=== PATIENT | male | born 1945 | race Caucasian/White ===

== ENCOUNTER 2017-03-13 04:43 | Emergency (ER) | payer MEDICARE, MEDICAID ==
[~2017-03-13] VITALS: Ht 162.6 cm; Wt 66.6 kg
[2017-03-13 11:44] VITALS: BP 128/102
== END 2017-03-13 11:48 | disposition home or self-care (01) ==
LOC: ED 06:39 → EDIP 08:01 → UNDOADMOB 08:01 → ED 11:48
DX: F10.129 Alcohol abuse with intoxication, unspecified (principal); F19.10 Other psychoactive substance abuse, uncomplicated; I10 Essential (primary) hypertension
CPT/HCPCS: 99283

== ENCOUNTER 2018-04-01 06:30 | Observation (INO) | payer MEDICARE, MEDICAID ==
[~2018-04-01] VITALS: Ht 165.1 cm; Wt 59.6 kg
[2018-04-01] MEDS ORDERED: LISI-167 PO (07:15)
[2018-04-01] MEDS ORDERED: TRAZ-137 PO (07:15)
[2018-04-01] MEDS ORDERED: TAMS0.4C2 PO (07:15)
[2018-04-01] MEDS ORDERED: IBUP-1222 PO (07:18)
[2018-04-01] MEDS ORDERED: SERT50TA5 PO (07:18)
[2018-04-01 07:26] LABS: BASOPHILS # (AUTO) 0.01 x10^3/uL (0-0.1); BASOPHILS % (AUTO) 0 % (0-1); EOSINOPHILS # (AUTO) 0.11 x10^3/uL (0-0.4); EOSINOPHILS % (AUTO) 2 % (1-7); LYMPHOCYTES # (AUTO) 0.65 x10^3/uL (1-3.4); LYMPHOCYTES % (AUTO) 11 % (22-44); MD NO; MEAN CORPUSCULAR HEMOGLOBIN 30.7 pg (27.5-34.5); MEAN CORPUSCULAR HGB CONC 33.5 g/dL (33.2-36.2); MEAN CORPUSCULAR VOLUME 91.5 fL (81-97); MEAN PLATELET VOLUME 7.3 fL (7.4-10.4); MONOCYTES # (AUTO) 0.48 x10^3/uL (0.2-0.8); MONOCYTES % (AUTO) 8 % (2-9); NEUTROPHILS # (AUTO) 4.84 x10^3/uL (1.8-6.8); NEUTROPHILS % (AUTO) 79 % (42-75); PLATELET COUNT 231 x10^3/uL (130-400); RED BLOOD COUNT 4.18 x10^6/uL (4.38-5.82); RED CELL DISTRIBUTION WIDTH 12.5 % (9.4-14.8)
[2018-04-01] MEDS ORDERED: SODIUM CHLORIDE FLUSH 10ML SYR IVF ONE (07:30)
[2018-04-01 07:33] LABS: INTERNATIONAL NORMALIZED RATIO 1.07 (0.93-1.1)
[2018-04-01 07:35] LABS: ALANINE AMINOTRANSFERASE 15 U/L (12-78); ALBUMIN 3.8 g/dL (3.4-5.0); ANION GAP 11 mmol/L (5-15); CALCIUM 8.5 mg/dL (8.5-10.1); CHLORIDE 102 mmol/L (98-107); CREATININE 1.15 mg/dL (0.7-1.3)
[2018-04-01 07:39] LABS: ALKALINE PHOSPHATASE 82 U/L (45-117); BILIRUBIN,TOTAL 0.7 mg/dL (0.2-1.0); TOTAL PROTEIN 6.9 g/dL (6.4-8.2); TROPONIN I < 0.015 ng/mL (0.000-0.045)
[2018-04-01] MEDS: D5%-0.45NACL+KCL 20MEQ 1,000 ML IV SCH ×3 (08:48→23:42)
[2018-04-01] MEDS ORDERED: THIAMINE 100MG TABLET ONE (08:54)
[2018-04-01] MEDS ORDERED: KETOROLAC 30 MG/1 ML IV PRN (09:00)
[2018-04-01] MEDS ORDERED: THIAMINE 100MG TABLET PO ONE (09:00)
[2018-04-01] MEDS ORDERED: IBUPROFEN 600 MG TABLET PO PRN (09:00)
[2018-04-01] MEDS ORDERED: ACETAMINOPHEN 325 MG TABLET PO PRN (09:00)
[2018-04-01] MEDS ORDERED: hydrALAzine 20 MG/ML, 1ML IVPush PRN (09:00)
[2018-04-01] MEDS ORDERED: TAMSULOSIN 0.4 MG CAP.ER.24H ONE (09:16)
[2018-04-01] MEDS: TAMSULOSIN 0.4 MG CAP.ER.24H PO SCH (09:19)
[2018-04-01 10:31] VITALS: BP 121/65
[2018-04-01] MEDS: ENOXAPARIN 40 MG/0.4 ML SQ SCH (10:58)
[2018-04-01] MEDS: SERTRALINE 50MG TABLET PO SCH (13:19)
[2018-04-01 13:35] VITALS: BP 139/72
[2018-04-01 13:48] LABS: TROPONIN I < 0.015 ng/mL (0.000-0.045)
[2018-04-01 19:11] VITALS: BP 134/62
[2018-04-01 19:12] VITALS: BP_SYST 124; BP_SYST 130; BP_DIAS 55; BP_DIAS 67
[2018-04-01 19:45] LABS: TROPONIN I 0.017 ng/mL (0.000-0.045)
[2018-04-01] MEDS ORDERED: TRAZODONE 50MG TABLET PO SCH (21:00)
[2018-04-02] VITALS (7 sets, daily range): BP systolic 135–176; BP diastolic 66–89
[2018-04-02 05:48] LABS: BASOPHILS # (AUTO) 0.01 x10^3/uL (0-0.1); BASOPHILS % (AUTO) 0 % (0-1); EOSINOPHILS # (AUTO) 0.09 x10^3/uL (0-0.4); EOSINOPHILS % (AUTO) 2 % (1-7); LYMPHOCYTES # (AUTO) 0.29 x10^3/uL (1-3.4); LYMPHOCYTES % (AUTO) 5 % (22-44); MD NO; MEAN CORPUSCULAR HEMOGLOBIN 31.5 pg (27.5-34.5); MEAN CORPUSCULAR HGB CONC 34.1 g/dL (33.2-36.2); MEAN CORPUSCULAR VOLUME 92.5 fL (81-97); MEAN PLATELET VOLUME 7.8 fL (7.4-10.4); MONOCYTES % (AUTO) 2 % (2-9); NEUTROPHILS # (AUTO) 5.61 x10^3/uL (1.8-6.8); NEUTROPHILS % (AUTO) 92 % (42-75); PLATELET COUNT 189 x10^3/uL (130-400); RED BLOOD COUNT 4.04 x10^6/uL (4.38-5.82); RED CELL DISTRIBUTION WIDTH 12.6 % (9.4-14.8)
[2018-04-02 05:59] LABS: ANION GAP 8 mmol/L (5-15); CHLORIDE 109 mmol/L (98-107); CREATININE 1.08 mg/dL (0.7-1.3)
[2018-04-02 06:09] LABS: TROPONIN I < 0.015 ng/mL (0.000-0.045)
[2018-04-02] MEDS: SERTRALINE 50MG TABLET PO SCH (10:00)
[2018-04-02] MEDS: TAMSULOSIN 0.4 MG CAP.ER.24H PO SCH (10:01)
[2018-04-02] MEDS: ENOXAPARIN 40 MG/0.4 ML SQ SCH (10:01)
[2018-04-02] MEDS: D5%-0.45NACL+KCL 20MEQ 1,000 ML IV SCH (10:39)
== END 2018-04-02 18:30 | disposition home or self-care (01) ==
LOC: ED 08:53 → EDIP 08:54 → 5SO 10:07
PROVIDERS: ADMIT Hospitalist; ATTEND Family Medicine
DX: R55 Syncope and collapse (principal); D64.9 Anemia, unspecified; E86.0 Dehydration; E87.1 Hypo-osmolality and hyponatremia; F10.10 Alcohol abuse, uncomplicated; F17.200 Nicotine dependence, unspecified, uncomplicated; F32.9 Major depressive disorder, single episode, unspecified; G89.29 Other chronic pain; G90.9 Disorder of the autonomic nervous system, unspecified; I10 Essential (primary) hypertension; J98.11 Atelectasis; N40.0 Benign prostatic hyperplasia without lower urinary tract symptoms; Z59.0 Homelessness; Z81.8 Family history of other mental and behavioral disorders; Z85.46 Personal history of malignant neoplasm of prostate; Z86.74 Personal history of sudden cardiac arrest
CPT/HCPCS: 36415; 70450; 71045; 80048; 80053; 83880; 84484; 85025; 85610; 85730; 93005; 93306; 96360; 96361; 96372; 99285; G0378; J1650; J3480

== ENCOUNTER 2018-06-30 01:04 | Emergency (ER) | payer MEDICARE, MEDICAID ==
[~2018-06-30] VITALS: Ht 165.1 cm; Wt 63.5 kg
[~2018-06-30 01:04] MED LIST: IBUP-1222 PO; LISI-167 PO; SERT50TA28 PO; TAMS0.4C2 PO; TRAZ-137 PO
--- NOTE | 2018-06-30 01:27 | NUR ---
PT REPORTS L SIDED DENTAL PAIN X ONE WEEK, WORSENING TODAY. AIRWAY PATENT; SPEECH CLEAR; PT MANAGING OWN SECRETIONS. PT HYPERTENSIVE W HX OF SAME. NON-COMPLIANT WITH MEDICATIONS. DENIES CP/SOB/DODGE/NOSEBLEEDS/FLANK PAIN
[2018-06-30] MEDS ORDERED: HYDROcodone/APAP 5/325 TABLET ONE (01:44)
[2018-06-30] MEDS ORDERED: HYDROcodone/APAP 5/325 TABLET PO ONE (02:00)
[2018-06-30 02:05] VITALS: BP 175/80
--- NOTE | 2018-06-30 02:16 | NUR ---
PT REPORTS IMPROVEMENT IN PAIN W/ MEDICATIONS. IMPROVMENT IN BP NOTED. SPO2 REMAINS >90% ON RA. DC EDUCATION PROVIDED, PT DEMONSTRATES UNDERSTANDING. PT TO WALK HOME REPORTS "I DON'T LIVE FAR". PT DRESSED APPROPRIATELY FOR WEATHER
== END 2018-06-30 02:19 | disposition home or self-care (01) ==
LOC: ED 01:32
DX: K08.89 Other specified disorders of teeth and supporting structures (principal); I10 Essential (primary) hypertension; F17.200 Nicotine dependence, unspecified, uncomplicated; Z85.46 Personal history of malignant neoplasm of prostate
CPT/HCPCS: 99283; J7512

== ENCOUNTER 2018-07-01 09:39 | Emergency (ER) | payer MEDICARE, MEDICAID ==
[~2018-07-01] VITALS: Ht 165.1 cm; Wt 62.0 kg
[2018-07-01 09:50] VITALS: BP 189/83
--- NOTE | 2018-07-01 10:17 | NUR ---
Pt seen here 2 days ago for dental pain- unable to fill rx due to lack of money. Will have money to fill rx tomorrow for abx & NSAID. States he was told by a pharmacist that we provide vouchers for meds if pt's unable to fill them. [facility].
[2018-07-01] MEDS ORDERED: HYDROcodone/APAP 5/325 TABLET PO ONE (10:30)
[2018-07-01] MEDS ORDERED: HYDROcodone/APAP 5/325 TABLET ONE (10:32)
--- NOTE | 2018-07-01 10:38 | NUR ---
Pt medicated as per for emar for 01/12 dental pain. Pt left rx at pharmacy, being re-written by DANIELLE RODRIGUEZ then will d/c home.
== END 2018-07-01 10:46 | disposition home or self-care (01) ==
LOC: ED 10:40
DX: K02.9 Dental caries, unspecified (principal); I10 Essential (primary) hypertension; G89.29 Other chronic pain; Z85.46 Personal history of malignant neoplasm of prostate
CPT/HCPCS: 99283

== ENCOUNTER 2019-05-11 14:49 | Observation (INO) | payer MEDICAID, MEDICARE ==
[~2019-05-11] VITALS: Ht 165.1 cm; Wt 57.4 kg
--- NOTE | 2019-05-11 15:18 | NUR ---
PATIENT STATES HE ISNT ABLE TO TAKE MEDS SINCE THEY WERE STOLEN- 4-5 MONTHS AGO.
[2019-05-11] MEDS ORDERED: CEFTRIAXONE PMX 1GM/50ML 50 ML ONE (16:25)
[2019-05-11 16:43] LABS: BASOPHILS # (AUTO) 0.01 x10^3/uL (0-0.1); BASOPHILS % (AUTO) 0 % (0-1); EOSINOPHILS # (AUTO) 0.29 x10^3/uL (0-0.4); EOSINOPHILS % (AUTO) 6 % (1-7); LYMPHOCYTES # (AUTO) 0.65 x10^3/uL (1-3.4); LYMPHOCYTES % (AUTO) 14 % (22-44); MD NO; MEAN CORPUSCULAR HEMOGLOBIN 31.1 pg (27.5-34.5); MEAN CORPUSCULAR VOLUME 94.3 fL (81-97); MEAN PLATELET VOLUME 7.6 fL (7.4-10.4); MONOCYTES # (AUTO) 0.43 x10^3/uL (0.2-0.8); MONOCYTES % (AUTO) 9 % (2-9); NEUTROPHILS # (AUTO) 3.31 x10^3/uL (1.8-6.8); NEUTROPHILS % (AUTO) 71 % (42-75); PLATELET COUNT 227 x10^3/uL (130-400); RED BLOOD COUNT 4.06 x10^6/uL (4.38-5.82); RED CELL DISTRIBUTION WIDTH 12.5 % (9.4-14.8)
--- NOTE | 2019-05-11 16:49 | NUR ---
PEPE CALDWELL AT BEDSIDE FOR EVALUATION. CULTURES DRAWN AND ABX STARTED
[2019-05-11 16:54] LABS: ALBUMIN 3.5 g/dL (3.4-5.0); ANION GAP 7 mmol/L (5-15); CALCIUM 8.6 mg/dL (8.5-10.1); CHLORIDE 106 mmol/L (98-107)
[2019-05-11 16:58] LABS: ALANINE AMINOTRANSFERASE 15 U/L (12-78); ALKALINE PHOSPHATASE 84 U/L (45-117); BILIRUBIN,TOTAL 0.7 mg/dL (0.2-1.0); CREATININE 1.06 mg/dL (0.7-1.3); TOTAL PROTEIN 6.9 g/dL (6.4-8.2)
[2019-05-11] MEDS ORDERED: CEFTRIAXONE PMX 1GM/50ML 50 ML IVPB ONE (17:00)
[2019-05-11] MEDS ORDERED: AZITHROMYCIN 500 MG TABLET PO ONE (17:30)
[2019-05-11] MEDS ORDERED: AZITHROMYCIN 500 MG TABLET ONE (17:38)
--- NOTE | 2019-05-11 17:49 | NUR ---
REPORT CALLED TO [facility] OLSON. PATIENT AWARE OF TRANSFER
[2019-05-11 20:30] VITALS: BP 164/87
[2019-05-11] MEDS ORDERED: AQUAPHOR NATURAL HEALING OINT 50GM TP PRN (20:30)
[2019-05-11] MEDS ORDERED: DIPHENHYDRAMINE 25 MG CAPSULE PO PRN (20:30)
[2019-05-11 20:49] VITALS: BP 154/80
[2019-05-11] MEDS ORDERED: ENALAPRILAT 1.25 MG/ML, 2ML IVPush PRN (21:00)
[2019-05-11] MEDS ORDERED: ACETAMINOPHEN 325 MG TABLET PO PRN (21:00)
[2019-05-11] MEDS ORDERED: DOCUSATE 100 MG CAPSULE PO PRN (21:00)
[2019-05-11] MEDS ORDERED: TRAZODONE 50MG TABLET PO SCH (21:00)
[2019-05-11] MEDS ORDERED: ENOXAPARIN 40 MG/0.4 ML SQ SCH (21:00)
[2019-05-11] MEDS ORDERED: LIDODERM 5% PATCH TD PRN (21:00)
[2019-05-11] MEDS ORDERED: ONDANSETRON ODT 4 MG PO PRN (21:00)
[2019-05-11] MEDS ORDERED: GUAIFENESIN/DM 200-20MG, 10ML UDC PO PRN (21:00)
[2019-05-11] MEDS ORDERED: NICOTINE 7 MG/24 HR PATCH.TD24 TD PRN (22:00)
[2019-05-11 23:39] LABS: RAPID INFLUENZA A Negative (Negative); RAPID INFLUENZA B Negative (Negative)
[2019-05-12 02:35] VITALS: BP 160/80
[2019-05-12 06:05] LABS: BASOPHILS # (AUTO) 0.01 x10^3/uL (0-0.1); BASOPHILS % (AUTO) 0 % (0-1); EOSINOPHILS % (AUTO) 7 % (1-7); LYMPHOCYTES # (AUTO) 0.93 x10^3/uL (1-3.4); LYMPHOCYTES % (AUTO) 21 % (22-44); MD NO; MEAN CORPUSCULAR HEMOGLOBIN 30.9 pg (27.5-34.5); MEAN CORPUSCULAR VOLUME 93.5 fL (81-97); MEAN PLATELET VOLUME 7.8 fL (7.4-10.4); MONOCYTES # (AUTO) 0.49 x10^3/uL (0.2-0.8); MONOCYTES % (AUTO) 11 % (2-9); NEUTROPHILS # (AUTO) 2.64 x10^3/uL (1.8-6.8); NEUTROPHILS % (AUTO) 60 % (42-75); PLATELET COUNT 211 x10^3/uL (130-400); RED BLOOD COUNT 3.99 x10^6/uL (4.38-5.82); RED CELL DISTRIBUTION WIDTH 12.6 % (9.4-14.8)
[2019-05-12 06:15] LABS: ANION GAP 6 mmol/L (5-15); CALCIUM 8.3 mg/dL (8.5-10.1); CHLORIDE 106 mmol/L (98-107)
[2019-05-12 06:16] LABS: CREATININE 1.14 mg/dL (0.7-1.3)
[2019-05-12] MEDS ORDERED: ACETAMINOPHEN 325 MG TABLET PO PRN (07:30)
[2019-05-12 07:32] VITALS: BP 167/72
[2019-05-12] MEDS: CARVEDILOL 3.125 MG TABLET PO SCH ×2 (07:53→18:00)
[2019-05-12] MEDS ORDERED: SERTRALINE 50MG TABLET PO SCH (09:00)
[2019-05-12] MEDS ORDERED: LISINOPRIL 10 MG TABLET PO SCH (09:00)
[2019-05-12] MEDS ORDERED: TAMSULOSIN 0.4 MG CAP.ER.24H PO SCH (09:00)
[2019-05-12] MEDS ORDERED: PETR50OI TP (13:34)
[2019-05-12] MEDS ORDERED: CARV3.1212 PO (13:34)
[2019-05-12] MEDS ORDERED: NICO-485 TD (13:34)
[2019-05-12 13:40] VITALS: BP 126/56
[2019-05-12] MEDS ORDERED: CEFTRIAXONE PMX 1GM/50ML 50 ML IV SCH (19:00)
== END 2019-05-12 19:30 | disposition home or self-care (01) ==
LOC: ED 16:55 → INTOOBSV 17:19 → EDIP 17:19 → 3N 18:34
PROVIDERS: ADMIT Internal Medicine; ATTEND Internal Medicine
DX: J15.9 Unspecified bacterial pneumonia (principal); F17.200 Nicotine dependence, unspecified, uncomplicated; G89.29 Other chronic pain; M54.5 Low back pain; M54.2 Cervicalgia; L29.9 Pruritus, unspecified; I10 Essential (primary) hypertension; F32.9 Major depressive disorder, single episode, unspecified; G47.30 Sleep apnea, unspecified; Z85.46 Personal history of malignant neoplasm of prostate; Z59.0 Homelessness; Z72.89 Other problems related to lifestyle
CPT/HCPCS: 36415; 71045; 80048; 80053; 82140; 83605; 85025; 87040; 87400; 93005; 96365; 96372; 99285; G0378; J0696; J1650; Q0163

== ENCOUNTER 2020-05-24 15:55 | Emergency (ER) | payer MEDICARE ==
[~2020-05-24] VITALS: Ht 165.1 cm; Wt 58.2 kg
[~2020-05-24 15:55] MED LIST changes: +CARV3.1212 PO; +NICO-485 TD; +PETR50OI TP; -TRAZ-137 PO; +TRAZ-175 PO
[2020-05-24 15:58] VITALS: BP 170/77
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
--- NOTE | 2020-05-24 17:02 | NUR ---
PT WITH SCABIES. COMPLETE SET OF CLEAN CLOTHES PROVIDED TO PT (PANTS, UNDERWEAR, 2 T-SHIRTS, SOCKS). PT INSTRUCTED TO NOT PUT THE NEW CLOTHES ON UNTIL HE HAS TREATED HIMSELF FOR THE SCABIES. PT INSTRUCTED THAT ALL OF HIS CLOTHES WILL NEED TO BE WASHED IN HOT WATER BEFORE HE TRIES TO WEAR THEM AGAIN. I INFORMED PT THAT IF HE IS UNABLE TO CLEAN HIS CLOTHES HE NEEDS TO DISCARD THEM. PT VERBALIZES UNDERSTANDING
--- NOTE | 2020-05-24 17:29 | NUR ---
Patient/Caregiver given discharge instructions and they have confirmed that they understand the instructions. Patient ambulatory with steady gait.
== END 2020-05-24 17:30 | disposition home or self-care (01) ==
LOC: ED 16:34
DX: S00.03XA Contusion of scalp, initial encounter (principal); B86 Scabies; Z85.46 Personal history of malignant neoplasm of prostate; I10 Essential (primary) hypertension; G89.29 Other chronic pain; W01.0XXA Fall on same level from slipping, tripping and stumbling without subsequent striking against object, initial encounter; Y93.89 Activity, other specified; Y92.410 Unspecified street and highway as the place of occurrence of the external cause; Y99.8 Other external cause status
CPT/HCPCS: 70450; 99284

== ENCOUNTER 2020-06-09 16:48 | Emergency (ER) | payer MEDICARE ==
[~2020-06-09] VITALS: Ht 165.1 cm; Wt 65.0 kg
--- NOTE | 2020-06-09 17:03 | NUR ---
PT BIB EMS FOR GLF. NO LOC. PT STATES NECK AND BACK PAIN. PLACED IN CCOLLAR BY EMS. DENIES VISION CHANGES, NOT INJURIES NOTED. DENIES CHEST PAIN.
--- NOTE | 2020-06-09 18:17 | NUR ---
PT SLEEPING, VSS
[2020-06-09] MEDS ORDERED: DOXYCYCLINE 100MG TABLET ONE (18:48)
[2020-06-09 19:11] LABS: CALCIUM 8.5 mg/dL (8.5-10.1)
[2020-06-09 19:12] LABS: CREATININE 1.12 mg/dL (0.7-1.3)
[2020-06-09 19:19] LABS: ANION GAP 4 mmol/L (5-15); CHLORIDE 109 mmol/L (98-107)
--- NOTE | 2020-06-09 21:05 | NUR ---
PT WALKED TO BATHROOM ACROSS ROE AND BACCK TO BED. PT SLOW TO GET OUT OF BED BUT WALKED WITHOUT ASSISTANCE AROUND. PT DID SAY NICOLE IT WAS NORMAL FOR HIM DUE TO HIS HX OF BACK SURGERY
[2020-06-09 22:43] VITALS: BP 169/88
--- NOTE | 2020-06-09 22:45 | NUR ---
PT AMBULATED TO LOBBY WITH CAB VOUCHER PROVIDED FOR PT
== END 2020-06-09 22:46 | disposition home or self-care (01) ==
LOC: ED 18:17
DX: S09.90XA Unspecified injury of head, initial encounter (principal); I63.9 Cerebral infarction, unspecified; M54.2 Cervicalgia; F10.229 Alcohol dependence with intoxication, unspecified; I11.0 Hypertensive heart disease with heart failure; I50.1 Left ventricular failure, unspecified; Z72.9 Problem related to lifestyle, unspecified; W18.39XA Other fall on same level, initial encounter; Y93.89 Activity, other specified; Y92.488 Other paved roadways as the place of occurrence of the external cause; Y99.8 Other external cause status; Y90.0 Blood alcohol level of less than 20 mg/100 ml
CPT/HCPCS: 36415; 70450; 72125; 80048; 80320; 93005; 99285; G0480

== ENCOUNTER 2020-06-18 21:47 | Emergency (ER) | payer MEDICARE ==
[~2020-06-18] VITALS: Ht 165.1 cm; Wt 60.0 kg
--- NOTE | 2020-06-18 21:59 | NUR ---
pt to imaging
--- NOTE | 2020-06-18 22:11 | NUR ---
PT RETURNED FROM IMAGING
[2020-06-18] MEDS ORDERED: ACETAMINOPHEN 500 MG TABLET ONE (22:21)
[2020-06-18] MEDS ORDERED: ACETAMINOPHEN 500 MG TABLET PO ONE (22:30)
[2020-06-18 22:59] VITALS: BP 173/82
--- NOTE | 2020-06-18 23:05 | NUR ---
Patient given discharge instructions and they have confirmed that they understand the instructions. Patient ambulatory with steady gait. Pt provided taxi voucher upon d/c from ED.
== END 2020-06-18 23:14 | disposition home or self-care (01) ==
LOC: ED 22:44
DX: S62.305A Unspecified fracture of fourth metacarpal bone, left hand, initial encounter for closed fracture (principal); M54.5 Low back pain; M79.89 Other specified soft tissue disorders; I10 Essential (primary) hypertension; G89.11 Acute pain due to trauma; F17.210 Nicotine dependence, cigarettes, uncomplicated; Z72.9 Problem related to lifestyle, unspecified; Z85.46 Personal history of malignant neoplasm of prostate; W01.0XXA Fall on same level from slipping, tripping and stumbling without subsequent striking against object, initial encounter; Y93.89 Activity, other specified; Y92.488 Other paved roadways as the place of occurrence of the external cause; Y99.8 Other external cause status
CPT/HCPCS: 29125; 72110; 99284

== ENCOUNTER 2020-07-12 01:21 | Emergency (ER) | payer MEDICARE, MEDICAID ==
[~2020-07-12] VITALS: Ht 165.1 cm; Wt 60.0 kg
[2020-07-12 02:15] VITALS: BP 168/78
--- NOTE | 2020-07-12 02:16 | NUR ---
Patient given discharge instructions and they have confirmed that they understand the instructions. Patient ambulatory with steady gait. denies additional questions or needs, no personal belongings left after dc
== END 2020-07-12 02:18 | disposition home or self-care (01) ==
LOC: ED 01:25
DX: B85.1 Pediculosis due to Pediculus humanus corporis (principal); Z59.0 Homelessness; G89.29 Other chronic pain; I10 Essential (primary) hypertension; Z85.46 Personal history of malignant neoplasm of prostate
CPT/HCPCS: 99283; 99285

== ENCOUNTER 2020-08-25 15:40 | Emergency (ER) | payer MEDICARE, MEDICAID ==
[~2020-08-25] VITALS: Ht 165.1 cm; Wt 60.0 kg
[2020-08-25 16:44] VITALS: BP 167/73
--- NOTE | 2020-08-25 17:32 | NUR ---
PT AMBULATED TO RESTROOM STEADILY.
== END 2020-08-25 17:57 | disposition home or self-care (01) ==
LOC: ED 17:40
DX: B85.1 Pediculosis due to Pediculus humanus corporis (principal); I10 Essential (primary) hypertension; Z59.0 Homelessness
CPT/HCPCS: 99283

== ENCOUNTER 2020-11-10 22:08 | Emergency (ER) | payer MEDICARE, MEDICAID ==
[~2020-11-10] VITALS: Ht 165.1 cm; Wt 57.4 kg
[2020-11-10 22:11] VITALS: BP 186/93
== END 2020-11-10 23:30 | disposition home or self-care (01) ==
LOC: ED 22:33
DX: L29.9 Pruritus, unspecified (principal); B86 Scabies; I10 Essential (primary) hypertension; G89.29 Other chronic pain; Z85.46 Personal history of malignant neoplasm of prostate
CPT/HCPCS: 99283

== ENCOUNTER 2020-11-27 18:00 | Emergency (ER) | payer MEDICARE, MEDICAID ==
[~2020-11-27] VITALS: Ht 165.1 cm; Wt 53.8 kg
[~2020-11-27 18:00] MED LIST changes: +AMLO-150 PO; +ATOR20TA37 PO; +FURO-93 PO; +METO5TAB5 PO; +POTA10TA PO
[2020-11-27 18:29] VITALS: BP 138/73
--- NOTE | 2020-11-27 20:48 | NUR ---
PT NOT IN LOBBY AT THIS TIME WHEN CALLED FOR ROOM.
--- NOTE | 2020-11-27 21:13 | NUR ---
NOT IN LOBBY WHEN CALLED FOR ROOM.
--- NOTE | 2020-11-27 21:29 | NUR ---
PT NOT IN LOBBY WHEN CALLED FROM ROOM.
== END 2020-11-27 21:30 | disposition left against medical advice (07) ==
LOC: ED 21:00
DX: R10.9 Unspecified abdominal pain (principal); R42 Dizziness and giddiness; R53.1 Weakness; Z53.21 Procedure and treatment not carried out due to patient leaving prior to being seen by health care provider
CPT/HCPCS: 93005

== ENCOUNTER 2021-02-10 13:29 | Emergency (ER) | payer MEDICARE, MEDICAID ==
[~2021-02-10] VITALS: Ht 167.6 cm; Wt 55.0 kg
--- NOTE | 2021-02-10 13:38 | NUR ---
PATIENT ARRIVES FOR WELLFARE CHECK, FOUND LAYING ON SIDEWALK. HE IS UKEPT. HE IS AWARE TO HOSPITAL, PERSON, DATE AND SITUATION.
[2021-02-10 13:39] VITALS: BP 162/89
--- NOTE | 2021-02-10 14:16 | NUR ---
BED BUGS ON PATIENT
[2021-02-10 14:36] LABS: BASOPHILS % (AUTO) 1 % (0-1); EOSINOPHILS % (AUTO) 10 % (1-7); LYMPHOCYTES % (AUTO) 14 % (22-44); MEAN CORPUSCULAR HEMOGLOBIN 29.7 pg (27.5-34.5); MEAN CORPUSCULAR HGB CONC 33.8 g/dL (33.2-36.2); MEAN PLATELET VOLUME 6.5 fL (7.4-10.4); MONOCYTES % (AUTO) 12 % (2-9); NEUTROPHILS % (AUTO) 63 % (42-75); PLATELET COUNT 339 x10^3/uL (130-400); RED CELL DISTRIBUTION WIDTH 13.8 % (9.4-14.8)
--- NOTE | 2021-02-10 14:43 | NUR ---
patient got oob and demanding to leave. he is singing romeo loves me. let md know patient leaving ama and demanding to leave. patient refusing to sign papers. called security, and they helped escort him out. patient escorted out and left ama.
[2021-02-10 14:57] LABS: SALICYLATE LEVEL < 1.7 mg/dL (2.8-20.0)
== END 2021-02-10 14:57 | disposition home or self-care (01) ==
LOC: ED 13:33
DX: R41.82 Altered mental status, unspecified (principal); I11.0 Hypertensive heart disease with heart failure; I50.9 Heart failure, unspecified; Z86.73 Personal history of transient ischemic attack (TIA), and cerebral infarction without residual deficits
CPT/HCPCS: 36415; 71045; 80299; 80320; 80329; 82140; 85025; 93005; 99285; G0480

== ENCOUNTER 2021-02-10 23:27 | Emergency (ER) | payer MEDICARE, MEDICAID ==
[~2021-02-10] VITALS: Ht 165.1 cm; Wt 85.0 kg
[2021-02-10 23:35] VITALS: BP 165/74
== END 2021-02-10 23:50 ==
LOC: ED 23:30
DX: S80.862A Insect bite (nonvenomous), left lower leg, initial encounter (principal); S80.861A Insect bite (nonvenomous), right lower leg, initial encounter; F17.200 Nicotine dependence, unspecified, uncomplicated; I11.0 Hypertensive heart disease with heart failure; I50.9 Heart failure, unspecified; Z86.73 Personal history of transient ischemic attack (TIA), and cerebral infarction without residual deficits; Z59.0 Homelessness; W57.XXXA Bitten or stung by nonvenomous insect and other nonvenomous arthropods, initial encounter; Y93.89 Activity, other specified; Y92.009 Unspecified place in unspecified non-institutional (private) residence as the place of occurrence of the external cause; Y99.8 Other external cause status
CPT/HCPCS: 99283